=== PATIENT | male | born 1975 | race Caucasian/White ===

== ENCOUNTER 2017-07-04 07:25 | Day surgery (SDC) | payer BC ==
[~2017-07-04] VITALS: Ht 182.9 cm; Wt 121.6 kg
--- NOTE | ~2017-07-04 | OR ---
[facility] [address], [place] [address] Draft DATE OF PROCEDURE: 07/04/17 PREOPERATIVE DIAGNOSES Right ureterolithiasis. Bilateral nephrolithiasis. POSTOPERATIVE DIAGNOSIS Right ureterolithiasis. Bilateral nephrolithiasis. PROCEDURES PERFORMED Cystoscopy with right retrograde pyelogram. Right ureteroscopy with laser lithotripsy and basket extraction of stones. Right ureteral stent insertion. SURGEONS: Steve Fagan MD. ANESTHESIA: General. ESTIMATED BLOOD LOSS: Minimal. COMPLICATIONS: None. SPECIMENS: Right ureteral stone sent to the lab for stone analysis. DRAINS A 6 by variable length double-J ureteral stent inserted into the right ureter. INDICATIONS FOR PROCEDURE Mr. Ramírez is a very pleasant 42-year-old gentleman with a previous history of nephrolithiasis who presented to my clinic last Tuesday with 2-3 week history of intermittent right-sided flank pain. He underwent a CT scan earlier that week which revealed a 6 x 4 right proximal ureteral calculus with associated hydronephrosis. Also noted was an approximately 5-6 mm stone in the right kidney. The patient had attempted a trial of passage and had been mostly unsuccessful. He had therefore decided to undergo elective extraction of the stone. OPERATIVE FINDINGS On cystoscopy, there was no evidence of any suspicious masses lesions or stones. Bilateral ureteral orifices are in their normal anatomic location. A retrograde pyelogram was performed, which did reveal the presence of a 6-mm proximal right ureteral stone that did appear to be obstructing in nature. PATIENT NAME: XOCHITL RAMÍREZ OPERATIVE REPORT DATE OF : 73 PHYSICIAN: STEVE FAGAN MD REPORT #: [id number] REPORT IS CONFIDENTIAL AND NOT TO BE RELEASED WITHOUT AUTHORIZATION [facility] [address], [place] [address] Draft Right flexible ureteroscopy was performed and once at the level of the proximal right ureter, I did encounter a large 6-mm stone. The stone was fragmented using a holmium laser and the fragments were then extracted using a Zero tip basket without difficulty. A 6 by variable length double-J ureteral stent was inserted into the right ureter under direct visualization without difficulty. DESCRIPTION OF PROCEDURE After informed consent was obtained the patient taken back to the operating room. He was transferred from the [facility] to operating table where general anesthesia was induced. He was placed in the dorsal lithotomy position and his genitalia prepped and draped in standard sterile fashion. Using a 30 degree lens, a rigid cystoscope was inserted through his urethra into his bladder under direct visualization. Pain endoscopic views of the bladder were then obtained. Please see above findings. Attention was turned to the right ureteral orifice. A cone-tipped catheter was inserted to the level of the right ureteral orifice and a right and right retrograde pyelogram was performed. Please see above findings. The cone-tipped catheter was then removed and the right ureter was cannulated with a Sensor wire. Fluoroscopic guidance confirmed adequate placement of the wire, once it was placed. Over the wire, a 13/15 ureteral access sheath was passed under fluoroscopic guidance without difficulty. Repeat retrograde pyelogram was performed with the sheath in place to confirm adequate placement. The inner cannula was then removed and then a flexible ureteroscope was passed through the sheath and into the right ureter and a right flexible ureteroscopy was performed. The obstructing 6-mm stone was visualized and was fragmented using the holmium laser at an 8 and 0.8 setting. The stone fragments were then extracted using a Zero tip basket without difficulty. I then advanced my flexible ureteroscope into the right kidney. I did experience some difficulty with visualization during the nephroscopy. I was able to locate the 6-mm stone in the kidney and I was able to fragment the stone. However, I did lose the stone once it was fragmented due to poor visualization. After attempting to find it, after approximately 30 minutes, I aborted that portion of the procedure. The flexible ureteroscope was then removed and a Sensor wire was inserted into the ureter via ureteral access sheath and placement was confirmed on fluoroscopy. The ureteral access sheath was removed. The cystoscope was then reinserted and a 6 by variable length stent was then passed over the wire into the right collecting system under direct visualization. Once the wire was pulled, I was able to appreciate an adequate proximal coil within the right renal pelvis along with an adequate distal coil within the bladder. The patient's bladder was then drained and the cystoscope was removed. The procedure was then terminated. The specimen was placed in a specimen cup to be sent to the lab for stone analysis. DISPOSITION Mr. Ramírez will be discharged to home later this morning in stable condition. I discussed the details of today's procedure with his and his [id number] and answered all PATIENT NAME: XOCHITL RAMÍREZ OPERATIVE REPORT DATE OF : 73 PHYSICIAN: STEVE FAGAN MD REPORT #: [id number] REPORT IS CONFIDENTIAL AND NOT TO BE RELEASED WITHOUT AUTHORIZATION [address] [address] Draft the questions. He will be sent home with Bactrim Double Strength for total 5 days along with Percocet 5/325, dispense #30 as needed for pain. He will be scheduled to return to clinic this Tuesday to undergo cystoscopy with right ureteral stent extraction. MD HYACINTH Ortiz/Jan /[id number] cc: Jorge Oleary MD PATIENT NAME: XOCHITL RAMÍREZ OPERATIVE REPORT DATE OF : 73 PHYSICIAN: STEVE FAGAN MD REPORT #: [id number] REPORT IS CONFIDENTIAL AND NOT TO BE RELEASED WITHOUT AUTHORIZATION
[~2017-07-04 07:25] MED LIST: GLIPIZIDE5 MG PO; METFORMIN HCL500 MG PO; NORCO 5-325 TA1 EACH PO; PROPRANOLOL HCL20 MG PO
[2017-07-04] MEDS ORDERED: NORCO 5-325 TA1 EACH PO (11:18)
--- NOTE | 2017-07-04 11:22 | NUR ---
07/04/17 [address] PT ARRIVED TO PACU MAINTAIN OWN AIRWAY AND ASLEEP. 1110 O2 100% O2 DECREASED TO 6L VIA MASK, PT BP HIGH ORDER WRITTEN BY 3RD GRADE READING TEACHER FOR LABETALOL, NOT GIVEN DUE TO BP DECREASING BELOW ORDER PARRAMETERS.
--- NOTE | 2017-07-04 12:35 | NUR ---
PT SEEMED RELAXED, RESTING IN BED-HE IS ALERT, ORIENTED AND SUPPORTED BY HIS HE. HE SEEMED PREPARED, HAD FEW QUESTIONS. GAVE BLDG DIRECTIONS TO HE. PT REQUESTED PRAYER. WILL FOLLOW NEEDED
[2017-07-04] MEDS ORDERED: PERCOCET 5-3251 EACH PO (13:24)
[2017-07-04] MEDS ORDERED: BACTRIM DS TAB1 EACH PO (13:25)
== END 2017-07-04 14:35 | disposition home or self-care (01) ==
LOC: OPS 07:25 → DS 07:25 → OPS 08:15 → DS 08:15 → OPS 14:35
PROVIDERS: Urology
PROC: 0T768DZ Dilation of Right Ureter with Intraluminal Device, Via Natural or Artificial Opening Endoscopic (ICD-10-PCS; principal; 2017-07-04 08:15)
PROC: 0TC68ZZ Extirpation of Matter from Right Ureter, Via Natural or Artificial Opening Endoscopic (ICD-10-PCS; 2017-07-04 08:15)
PROC: BT1DYZZ Fluoroscopy of Right Kidney, Ureter and Bladder using Other Contrast (ICD-10-PCS; 2017-07-04 08:15)
DX: N13.2 Hydronephrosis with renal and ureteral calculous obstruction (principal); E11.9 Type 2 diabetes mellitus without complications; G47.30 Sleep apnea, unspecified; M10.9 Gout, unspecified; Z98.890 Other specified postprocedural states; Z79.899 Other long term (current) drug therapy; Z87.891 Personal history of nicotine dependence
CPT/HCPCS: 00910; 74450; 82365; C2617; J0696; J1100; J1170; J1885; J2250; J2405; J2704; J2765; J3010; J7120; Q9967